=== PATIENT | male | born 1995 | race Two or more races ===

== ENCOUNTER → 2025-03-23 | Outpatient (CLI) | payer MEDICAID, SELFPAY ==
--- NOTE | 2025-03-23 10:07 | XR_ITS ---
Examination: Knee, left, 3 views Technique: Knee AP, lateral, oblique 3 views Date and time of exam: March 23, 2025, 10:10 a.m. INDICATIONS: Left knee pain after falling 1 month ago FINDINGS: Mild to moderate narrowing medial joint space Mild to moderate osteoarthritis patellofemoral joint Multiple suprapatellar joint ossified bodies, the largest 15 mm Moderate knee effusion No acute fracture IMPRESSION: Moderate osteoarthritis Multiple suprapatellar joint ossified bodies
== END | disposition home or self-care (01) ==
LOC: CDIM 09:55
PROVIDERS: PCP Physician Assistant; Referring Provider Physician Assistant; Visit Provider Physician Assistant
DX: M17.12 Unilateral primary osteoarthritis, left knee (principal); M25.862 Other specified joint disorders, left knee; G89.29 Other chronic pain; Z87.828 Personal history of other (healed) physical injury and trauma
CPT/HCPCS: 73562